=== PATIENT | female | born 1965 | race Asian ===

== ENCOUNTER 2017-05-17 09:13 | Day surgery (SDC) | payer OTHER ==
[~2017-05-17] VITALS: Ht 167.6 cm; Wt 57.6 kg
[~2017-05-17 09:13] MED LIST: ACET325T51 PO; MULT-1018 PO; Sodium Chloride LOK Flush 10 mL Syringe IV PRN; fentaNYL-PF 50 mCg/mL 2 mL Inj IVPUSH PRN
[2017-05-17 09:27] VITALS: BP 111/70; PULSE 88; RESP 16; O2SAT 99
[2017-05-17] MEDS: 0.9% Sodium Chloride 1,000 ML IV SCH ×2 (09:29→10:29)
[2017-05-17] MEDS ORDERED: MULT1CAP33 PO (09:34)
[2017-05-17 10:44] VITALS: BP 98/65; PULSE 68; RESP 15; O2SAT 100
[2017-05-17 10:54] VITALS: BP 87/55; PULSE 78; RESP 15; O2SAT 100
[2017-05-17 11:04] VITALS: BP 100/61; PULSE 62; RESP 15; O2SAT 99
--- NOTE | 2017-05-17 11:07 | ENDO ---
[address] [address] ENDOSCOPY PROCEDURE PATIENT: FLAVIO MUNSON : 1965 MR#: [id number] ADMIT: 05/17/2017 JOB ID: [id number] DATE: 05/17/2017 PRIMARY PROVIDER: Lucia Fraser MD PROCEDURE: Colonoscopy with biopsy. INDICATIONS: A 51-year-old female who reports for colon cancer screening. EQUIPMENT: PCF-H180AL. SEDATION: 1. Versed 3 mg. 2. Fentanyl 50 mcg. COMPLICATIONS: None identified. BOWEL PREP: Adequate. PROCEDURE INFO: After the risks and benefits were explained, written and verbal informed consent was obtained. The patient was brought into the endoscopy suite and placed into the left lateral decubitus position. Sedation was achieved as above. A digital rectal examination was accomplished. No significant pathology appreciated. The scope was introduced into the rectum and advanced to the cecum as identified by the appendiceal orifice and ileocecal valve. The scope was slowly withdrawn to carefully examine the mucosa for any defects or lesions. Retroflexed views were avoided in the rectum. Multiple direct views were made through the dentate line for exclusion of pathology. The colon was decompressed. The scope removed the patient who tolerated the procedure well. FINDINGS: In the rectum for the distal perhaps 4 cm or so there was some mild diffuse inflammation present. It was difficult to determine whether this was a chronic feature or prep induced irritation. I took a biopsy for histopathologic analysis. Otherwise, throughout the remainder of the colon. There was no evidence of any macroscopic colitis. The terminal ileum was interrogated and appeared within normal limits. I did not see any significant polyps or mass lesions throughout. ENDOSCOPIC DIAGNOSIS: 1. Mild nonspecific distal proctitis. 2. Otherwise visually unremarkable colonoscopy. RECOMMENDATIONS: 1. Await histopathology. 2. Follow up in GI clinic within the next couple of weeks.
== END 2017-05-17 23:59 | disposition home or self-care (01) ==
LOC: END 09:13
PROVIDERS: ATTEND Internal Medicine Gastroenterology
DX: Z12.11 Encounter for screening for malignant neoplasm of colon (principal); K62.89 Other specified diseases of anus and rectum; E78.5 Hyperlipidemia, unspecified; Z85.72 Personal history of non-Hodgkin lymphomas; Z87.440 Personal history of urinary (tract) infections
CPT/HCPCS: 45380; 99153; G0500; J2250; J3010; J7030